=== PATIENT | female | born 1955 | race Caucasian/White ===

== ENCOUNTER 2018-10-03 16:34 | Emergency (ER) | payer OTHER ==
--- NOTE | 2018-10-03 17:37 | PDOC ---
History of Present Illness - General Chief Complaint: Lightheaded Stated Complaint: Lightheaded Time Seen by Provider: 10/03/18 16:44 History Source: Patient Exam Limitations: No Limitations - History of Present Illness Initial Comments: 10/03/18 18:31 63f with pmh of chronic rhinitis presents to the ED for brain fog, vertigo and sinus pressure since earlier today. She says that the symptoms came progressively over the course of the day. She describe an exacerbation of the feeling of pressure whenever she bends her head over. She feels very congested behind her face. She thinks it feels similar to her previous episodes of rhinosinusitis but more intense. 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 She denies fever, chills, sore throat, ear pain, jaw pain, blurred/change in vision, headache, palpitation, vomiting or diarrhea. 10/03/18 18:38 Past History - Past Medical History Allergies/Adverse Reactions: Allergies Allergy/AdvReac Type Severity Reaction Status Date / Time No Known Allergies Allergy Verified 10/03/18 17:39 Home Medications: Ambulatory Orders NK [No Known Home Medication] 10/03/18 - Suicide/Smoking/Psychosocial Hx Smoking History: Never smoked Have you smoked in the past 12 months: No Hx Alcohol Use: Yes (social) Review of Systems - Review of Systems Able to Perform ROS?: Yes Is the patient limited Gu[place]an proficient: No Constitutional: No: Symptoms Reported HEENTM: Yes: See HPI Respiratory: No: Symptoms reported Cardiac (ROS): No: Symptoms Reported ABD/GI: No: Symptoms Reported : No: Symptoms Reported Musculoskeletal: No: Symptoms Reported Integumentary: No: Symptoms Reported Neurological: Yes: Dizziness. No: Headache All Other Systems: Reviewed and Negative *Physical Exam - Physical Exam General Appearance: Yes: Nourished, Appropriately Dressed. No: Apparent Distress HEENT: positive: EOMI, AYAAN, Nasal Congestion, Sinus Tenderness, Other (nasal turbinate swelling. ) Respiratory/Chest: positive: Lungs Clear, Normal Breath Sounds. negative: Chest Tender, Respiratory Distress Cardiovascular: positive: Regular Rhythm, Regular Rate, S1, S2 Gastrointestinal/Abdominal: positive: Normal Bowel Sounds, Flat, Soft. negative : Tender Musculoskeletal: positive: Normal Inspection. negative: CVA Tenderness Extremity: positive: Normal Capillary Refill, Normal Inspection, Normal Range of Motion Integumentary: positive: Normal Color, Dry, Warm Neurologic: positive: Fully Oriented, Alert, Normal Mood/Affect, Normal Response , Motor Strength 02/08 ED Treatment Course - LABORATORY CBC & Chemistry Diagram: 10/03/18 17:50 10/03/18 17:50 Medical Decision Making - Medical Decision Making 10/03/18 18:40 63f with brain fog and sinus pressure. Like acute on chronic viral sinus infection. 10/03/18 18:42 Will check TSH t/o explain her malaise and warmth. Given meclizine, NS and Zofran Patient signed out to Dr. Sanchez 10/03/18 19:07 *DC/Admit/Observation/Transfer Diagnosis at time of Disposition: Dizziness, Sinus pressure - Referrals Referrals: Purnima Beach MD [Primary Care Provider] - - Patient Instructions - Post Discharge Activity
[2018-10-03 17:39] VITALS: BMI 26.9
[2018-10-03] MEDS ORDERED: SODIUM CHLORIDE 1,000 ML IV STA (17:40)
--- NOTE | 2018-10-03 17:40 | PDOC ---
Attending Attestation - HPI HPI: 10/03/18 18:25 The patient is a 63 year old female with a significant past medical history of sinusitis presenting with dizziness since 1PM today. Patient notes she felt dehydrated and hot at work today prior to the onset of her symptoms. Patient states she was at work when she suddenly began to experience sinus pressure. Patient states the dizziness and sinus pressure feels like her typical sinus headache. Patient states she also had one episode of nonbloody, nonbilious vomit , which is unusual for her. She uses a nasal spray and a netti-pot at home for her sinuses but did not use it today. Patient had been given amoxicillin in the past for these symptoms. Patient has not had imaging in the past. Patient follows with an ENT doctor at [facility]. Patient denies fever, chills, nausea, ear pain, or throat pain. Allergies: NKDA Surgeries: None Social: No reported alcohol, drug or cigarette use. - Physicial Exam PE: 10/03/18 18:26 ADULT PE GENERAL: The patient is in no acute distress. HEAD: Normal with no signs of trauma. EYES: PERRLA, EOMI, sclera anicteric, conjunctiva clear. ENT: Ears normal, nares patent, oropharynx clear without exudates. Moist mucous membranes. NECK: Normal range of motion, supple without lymphadenopathy, JVD, or masses. LUNGS: Breath sounds equal, clear to auscultation bilaterally. No wheezes, and no crackles. HEART:Regular rate and rhythm, normal S1 and S2 without murmur, rub or gallop. NEUROLOGICAL: Cranial nerves II through XII grossly intact. SKIN: Warm, Dry, normal turgor, no rashes or lesions noted. <Sofya Crow - Last Filed: 10/03/18 18:25> - Resident Resident Name: Carlos Ortega - ED Attending Attestation I have performed the following: I have examined & evaluated the patient, The case was reviewed & discussed with the resident, I agree w/resident's findings & plan, Exceptions are as noted - Medical Decision Making 10/03/18 17:40 EKG - NSR rate of 63 bpm, axis nml, no st elevation or depression, t waves upright 10/03/18 18:35 Ms Masters is a 63 yo F who presents with a complaint of congestion and facial pain and vertigo Pt was in her usual state of health until this afternoon at approximately 1pm She began to have facial pressure She then noted vertigo and several episodes of vomiting Pt left work early She feels dehydrated Pt neurologically intact, no noticable weakness Will do: Labs Meclizine IV hydration I have discussed CT head with this patient She states she does not want to be imaged I have explained that on occasion, there are other causes of vertigo which are NOT sinusitis Pt is convinced that her symptoms are similar to prior and episodes of sinusitis Pt signed out to Dr. Beltran <Garima Méndez - Last Filed: 10/04/18 11:33>
[2018-10-03] MEDS ORDERED: MECLIZINE HCL 25 MG TABLET (FP) ONE (17:45)
[2018-10-03] MEDS ORDERED: MECLIZINE HCL 25 MG TABLET (FP) PO ONE (17:45)
[2018-10-03] MEDS ORDERED: SODIUM CHLORIDE NASAL SPRAY 44 ML BOTTLE NS ONE (17:45)
[2018-10-03] MEDS ORDERED: ONDANSETRON 4 MG/2 ML VIAL ONE (17:52)
[2018-10-03 18:06] LABS: BASO % 0.3 % (0-2.0); EOS % 0.8 % (0-4.5); HEMATOCRIT 37.8 % (32.4-45.2); HEMOGLOBIN 13.4 GM/dL (10.7-15.3); LYMPH % 15.3 % (8-40); MCH 32.4 pg (25.7-33.7); MCHC 35.3 g/dl (32.0-36.0); MEAN CELL VOLUME 91.8 fl (80-96); MEAN PLT VOLUME 8.7 fl (7.5-11.1); MONO % 3.2 % (3.8-10.2); NEUT % 80.4 % (42.8-82.8); PLATELET COUNT 178 K/MM3 (134-434); RBC 4.12 M/mm3 (3.60-5.2); RDW 13.5 % (11.6-15.6); WHITE BLOOD COUNT 7.1 K/mm3 (4.0-10.0)
[2018-10-03 18:58] LABS: ALBUMIN 4.2 g/dl (3.4-5.0); ALK PHOS 82 U/L (45-117); BILIRUBIN,TOTAL 0.4 mg/dL (0.2-1); BLOOD UREA NITROGEN 25 mg/dL (7-18); CALCIUM 9.1 mg/dL (8.5-10.1); CHLORIDE 98 mmol/L (98-107); CREATININE 1.1 mg/dL (0.55-1.3); GLUCOSE,RANDOM 128 mg/dL (74-106); POTASSIUM 4.4 mmol/L (3.5-5.1); SGOT/AST 19 U/L (15-37); SGPT/ALT 26 U/L (13-61); SODIUM 133 mmol/L (136-145); TOT PROT 7.6 g/dl (6.4-8.2)
[2018-10-03 18:59] LABS: ANION GAP 8 MMOL/L (8-16); CO2 27 mmol/L (21-32)
--- NOTE | 2018-10-03 20:46 | PDOC ---
*Physical Exam - Vital Signs Last Vital Signs Temp Pulse Resp BP Pulse Ox 97.5 F L 97 H 16 144/82 100 10/03/18 16:35 10/03/18 16:35 10/03/18 16:35 10/03/18 16:35 10/03/18 16:35 - Physical Exam Comments: 10/03/18 20:40 Patient's care endorsed to me by Dr. Ortega at the end of his shift. Patient has chronic rhinitis, requiring amoxicillin multiple times in the past. She feels sinus pressure and CASAREZ like her prior rhinitis/sinusitis. She also is a bit lightheaded. Pending re-assessment and likely can go home if symptoms improve after meclizine. ED Treatment Course - LABORATORY CBC & Chemistry Diagram: 10/03/18 17:50 10/03/18 17:50 - ADDITIONAL ORDERS Additional order review: Laboratory Results 10/03/18 17:50 Sodium 133 L Potassium 4.4 Chloride 98 Carbon Dioxide 27 Anion Gap 8 BUN 25 H Creatinine 1.1 Creat Clearance w eGFR 50.50 Random Glucose 128 H Calcium 9.1 Total Bilirubin 0.4 AST 19 ALT 26 Alkaline Phosphatase 82 Total Protein 7.6 Albumin 4.2 TSH 1.23 10/03/18 17:50 RBC 4.12 MCV 91.8 MCHC 35.3 RDW 13.5 MPV 8.7 Neutrophils % 80.4 Lymphocytes % 15.3 Monocytes % 3.2 L Eosinophils % 0.8 Basophils % 0.3 - Medications Given in the ED: ED Medications Discontinued Medications Generic Name Dose Route Start Last Admin Trade Name Freq PRN Reason Stop Dose Admin Sodium Chloride 1,000 mls @ 1,000 mls/hr 10/03/18 17:40 10/03/18 17:57 Normal Saline - IV 10/03/18 18:39 1,000 mls/hr ASDIR STA Administration Meclizine HCl 25 mg 10/03/18 17:45 10/03/18 17:48 Antivert - PO 10/03/18 17:46 25 mg ONCE ONE Administration Sodium Chloride 2 spray 10/03/18 17:45 10/03/18 17:57 [place] Nasal [place] - NS 10/03/18 17:46 2 sprays ONCE ONE Administration Medical Decision Making - Medical Decision Making 10/03/18 20:45 Patient states symptoms much improved, mildly lightheaded but believes this is 2 /2 rhinosinusitis. Gait is normal, walked unassisted to bathroom. She requests amoxicillin and this is given first dose here and remainder sent to her pharmacy. Meclizine sent as well as prn. She is comfortable with plan for discharge home and close outpatient f/u with PCP. Return precautions are discussed. *DC/Admit/Observation/Transfer Diagnosis at time of Disposition: Dizziness, Sinus pressure - Discharge Dispostion Disposition: HOME Condition at time of disposition: Stable Decision to Admit order: No - Prescriptions Prescriptions: Amoxicillin - [Amoxicillin 875mg Tablet -] 875 mg PO BID #14 tab Meclizine HCl 25 mg PO DAILY PRN #20 tablet PRN Reason: Vertigo - Referrals Referrals: Purnima Beach MD [Primary Care Provider] - - Patient Instructions Additional Instructions: You were seen in the ER for lightheadedness and sinus pressure. We did an exam, and an electrocardiogram and labs. Everything looks normal on the labs and EKG. We think you have a sinus infection and we gave you a dose of amoxicillin here and sent the remaining prescription to your pharmacy. We also sent a prescription for meclizine to take if you need it for dizziness. After our assessment, we do not believe you are having a medical emergency at this time, and we believe you are safe to go home. Please follow up with your primary care provider in 1-3 days. Call their clinic, tell them you were seen in the ER, and tell them you need a follow-up. If you have any new or worsening symptoms, especially passing out, palpitations, chest pain, or neurological symptoms, please come back to the ER at any time (24 hours a day). If you are having severe or life threatening symptoms, or symptoms that make it unsafe to drive or have someone drive you, please call 911. - Post Discharge Activity
[2018-10-03] MEDS ORDERED: AMOXICILLIN 500 MG CAPSULE (FP) PO ONE (21:23)
[2018-10-03] MEDS ORDERED: AMOXICILLIN 500 MG CAPSULE (FP) ONE (21:34)
[2018-10-04 05:29] VITALS: BP 139/75; PULSE 73; TEMP 98
--- NOTE | 2018-10-04 13:27 | EKG ---
Test Reason : Blood Pressure : / mmHG Vent. Rate : 063 BPM Atrial Rate : 063 BPM P-R Int : 150 ms QRS Dur : 086 ms QT Int : 422 ms P-R-T Axes : 051 009 054 degrees QTc Int : 431 ms NORMAL SINUS RHYTHM NORMAL ECG NO PREVIOUS ECGS AVAILABLE Confirmed by LUIS MARTINEZ MD ([id number]) on 10/04/2018 1:27:19 PM Referred By: Confirmed By:LUIS MARTINEZ MD
== END 2018-10-03 21:43 | disposition home or self-care (01) ==
LOC: JER 16:34
PROC: 3E0337Z Introduction of Electrolytic and Water Balance Substance into Peripheral Vein, Percutaneous Approach (ICD-10-PCS; principal; 2018-10-03)
DX: J31.0 Chronic rhinitis (principal); J32.9 Chronic sinusitis, unspecified
CPT/HCPCS: 36415; 80053; 84443; 85025; 93005; 93010; 99283-25; J7030